=== PATIENT | female | born 1995 | race Caucasian/White ===

== ENCOUNTER 2019-03-12 20:00 | Inpatient (IN) | payer OTHER ==
[~2019-03-12] VITALS: Ht 165.1 cm; Wt 69.8 kg
[~2019-03-12 20:00] MED LIST: PREN-19 PO
[2019-03-12 20:11] VITALS: BP 107/68; PULSE 71; RESP 16
[2019-03-12] MEDS ORDERED: LACTATED RINGER'S 1,000 ML IV PRN (20:41)
[2019-03-12] MEDS ORDERED: LIDOCAINE 1% (MPF) 30 ML INJ INJ PRN (21:00)
[2019-03-12] MEDS ORDERED: MINERAL OIL LIGHT 10 ML VIAL TOP PRN (21:00)
[2019-03-12] MEDS ORDERED: CARBOPROST 250 MCG INJ IM PRN (21:00)
[2019-03-12] MEDS ORDERED: IBUPROFEN 600 MG TAB PO PRN (21:00)
[2019-03-12] MEDS ORDERED: METHYLERGONOVINE 0.2 MG INJ IM PRN (21:00)
[2019-03-12] MEDS ORDERED: BUTORPHANOL 2 MG INJ IV PRN ×2 (21:00)
[2019-03-12] MEDS ORDERED: OXYTOCIN 30 UNITS/LR 500 ML IV PRN (21:00)
[2019-03-12] MEDS ORDERED: OXYTOCIN 30 UNITS/LR 500 ML IV SCH ×2 (21:00)
[2019-03-12] MEDS ORDERED: MISOPROSTOL 200 MCG TAB PR PRN (21:00)
[2019-03-12] MEDS ORDERED: AMPICILLIN 2 GM/NS (PMX) 100 ML IV ONE (21:00)
--- NOTE | 2019-03-12 21:04 | TRIAGE ---
OB Triage Datetime Report Generated by CPN: 03/12/2019 21:04 Datetime: 03/12/2019 20:59 Time of Arrival: 03/12/2019 19:45 EGA: 39.1 Arrived By: Wheelchair Arrived From: Home Chief Complaint: c/o ucs and discharge Movement: Present Contractions: Regular Time Contractions Began: 03/12/2019 11:00 Contractions: q5 Rupture of Membranes: Denies Vaginal Bleeding: Scant Vaginal Discharge: Present Recent Sexual Intercouse: Denies Abdominal Trauma: Not Applicable Patient Complaints: Contractions Time Provider Notified: 03/12/2019 20:35 Provider Notified: Dr Hernandez Initial Plan: EFM,SVE Datetime: 03/12/2019 20:33 Stage of : OB Triage Labor Evaluation Frequency: 2-4 Monitor Mode: External Duration (sec)2399: 60 Quality: Moderate Pattern: Normal: <= 5 Contractions in 10 Minutes Resting Tone [place]: Relaxed Heart Rate FHR Baseline Rate: 135 Monitor Mode: External US FHR Baseline Changes: No Baseline Change Variability: Moderate 6-25 bpm Accelerations: 15X15 Decelerations: None Category: Category I Pain Assessment Pain Scale: 7 Pain Presence: Intermittent Pain Type: Contraction Pain Location: Abdomen Vaginal Exam Dilatation (cms): 5.0 Effacement (%): 80 Station: -2 Exam By: Leanna Phillips Membrane Status: Bulging Vaginal Bleeding: Scant Cervix, Consistency: Soft Cervix, Position: Midposition Presentation 'A': Cephalic
[2019-03-12] MEDS ORDERED: FENTAnyl 2MCG/ML-ROPIV 0.2% 100 ML ONE (21:45)
--- NOTE | 2019-03-12 21:55 | PREAC ---
Date/Time of Note Date/Time of Note DATE: 03/12/19 TIME: 21:54 Anesthesia Eval and Record Evaluation Time Pre-Procedure Interview DATE: 03/12/19 TIME: 21:54 Age 24 Sex female NPO: 8 hrs Preoperative diagnosis Labor Pain Planned procedure Labor Epidural Past Medical History Past Medical History: Includes Heme: Anemia : : (2), Para: (1), Gestational age: (39) Surgery & Anesthesia Issues No known issue Meds Anticoagulation: No Beta Josephine within 24 hr: No Reason Beta Josephine not given: Pt. not on B-Josephine Reported Medications Vit #76/Iron,Carb/FA (Prenatabs Rx Tablet) 1 Each Tablet, 1 EACH PO DAILY, TAB 03/12/19 Current Medications Lactated Ringer's 1,000 ml @ 125 mls/hr Q8H IV ; Start 03/12/19 at 20:41 Ampicillin 100 ml @ 100 mls/hr ONCE ONCE IV Last administered on 03/12/19at 21:20; Admin Dose 100 MLS/HR; Start 03/12/19 at 21:00; Stop 03/12/19 at 21:59 Ampicillin 50 ml @ 100 mls/hr Q4H IV ; Start 03/13/19 at 01:00 Butorphanol Tartrate (Stadol) 1 mg Q2H PRN IV .PAIN SCALE 1-5; Start 03/12/19 at 21:00 Butorphanol Tartrate (Stadol) 2 mg Q2H PRN IV .PAIN SCALE 6-10; Start 03/12/19 at 21:00 Lidocaine (Xylocaine 1% (Mpf)) 30 ml ONCE PRN INJ .EPISIOTOMY; Start 03/12/19 at 21:00 Oxytocin/Lactated Ringer's 500 ml @ 500 mls/hr ONCE POST IV ; Start 03/12/19 at 21:00 Oxytocin/Lactated Ringer's 500 ml @ 125 mls/hr POST IV ; Start 03/12/19 at 21:00 Ibuprofen (Motrin) 600 mg ONCE PRN PO .PAIN 1-5; Start 03/12/19 at 21:00 Lactated Ringer's 1,000 ml @ 2,000 mls/hr Q30M PRN IV .ANESTHESIA Last administered on 03/12/19at 21:19; Admin Dose 2,000 MLS/HR; Start 03/12/19 at 20:41 Oxytocin/Lactated Ringer's 500 ml @ 0 mls/hr ONCE PRN IV .VAGINAL BLEEDING; Start 03/12/19 at 21:00 Methylergonovine Maleate (Methergine) 0.2 mg ONCE PRN IM .VAGINAL BLEEDING; Start 03/12/19 at 21:00 Carboprost Tromethamine (Hemabate) 250 mcg ONCE PRN IM .VAGINAL BLEEDING; Start 03/12/19 at 21:00 Misoprostol (Cytotec) 1,000 mcg ONCE PRN DC .VAGINAL BLEEDING; Start 03/12/19 at 21:00 Mineral Oil (Muri-Lube) ONCE PRN TOP LABOR INDUCTION; Start 03/12/19 at 21:00; Stop 03/13/19 at 20:59 Meds reviewed: Yes Allergies Coded Allergies: No Known Allergy (Unverified , 03/12/19) Allergies Reviewed: Yes Labs/Studies Labs Reviewed: Reviewed by anesthesiologist Result Diagram: 03/12/192049 Laboratory Tests 03/12/19 20:50 test: Positive Studies: ECG (n/a), CXR (n/a) Pre-procedure Exam Last vitals Vital Signs Date Temp Pulse Resp B/P (MAP) Pulse Ox O2 O2 Flow FiO2 Time Delivery Rate 03/12/19 97.7 71 16 107/68 Room Air 20:11 (81) Airway: Adequate mouth opening, Adequate thyromental dist Mallampati: Mallampati II Teeth: Normal Lung: Normal Heart: Normal ASA Physical Status ASA physical status: 2 Emergency: None Planned Anesthetic Neuraxial: Epidural Planned Pain Management Epidural Pre-operative Attestations Prior to commencing anesthesia and surgery, the patient was re-evaluated, there was verification of: *The patient's identity *The results of appropriate recent lab work and preoperative vital signs *The above evaluation not changing prior to induction *Anesthetic plan, risk benefits, alternative and complications discussed with patient/family; questions answered; patient/family understands, accepts and wishes to proceed. HAMZAH EDWARDS MD Mar 12, 2019 21:55
[2019-03-12] MEDS ORDERED: NALOXONE (0.4 MG/ML) INJ IV PRN (22:00)
[2019-03-12] MEDS ORDERED: FENTAnyl 2MCG/ML-ROPIV 0.2% 100 ML BAG EPI SCH (22:00)
--- NOTE | 2019-03-12 22:05 | PAC ---
Date/Time of Note Date/Time of Note DATE: 03/12/19 TIME: 22:04 Post-Anesthesia Notes Post-Anesthesia Note Last documented vital signs Vital Signs Date Temp Pulse Resp B/P (MAP) Pulse Ox O2 O2 Flow FiO2 Time Delivery Rate 03/12/19 97.7 71 16 107/68 100 Room Air 22:01 (81) Activity: WNL Respiratory function: WNL Cardiovascular function: WNL Mental status: Baseline Pain reasonably controlled: Yes Hydration appropriate: Yes Nausea/Vomiting absent: Yes HAMZAH EDWARDS MD Mar 12, 2019 22:05
[2019-03-12] MEDS: LACTATED RINGER'S 1,000 ML IV SCH ×2 (22:16→23:45)
--- NOTE | 2019-03-12 23:55 | PREOPHP ---
DATE OF ADMISSION: 03/12/2019 HISTORY OF PRESENT ILLNESS: Ms. Lanie Shah is a 24-year-old 2, para 1, EDC of 03/18/2019 in trauterine at 39 weeks and 1 day gestational age, presented to triage in labor. She report s of contractions since early this morning. No vaginal bleeding or discharge. She has currently had a spontaneous rupture of membranes. She is 9 cm, 100% effaced at 0 station. PAST MEDICAL HISTORY: None. MEDICATIONS: vitamins. PAST SURGICAL HISTORY: None. OBSTETRICAL HISTORY: x1 vaginal delivery. GYNECOLOGIC HISTORY: 12, regular 3 to 4 days. Denies any sexually transmitted infections. Sexually active with 1 partner. SOCIAL HISTORY: Denies any smoking, drugs or alcohol. FAMILY HISTORY: None. REVIEW OF SYSTEMS: All within normal except history of present illness. PHYSICAL EXAMINATION: HEENT: Within normal. LUNGS: CTA bilateral. CARDIOVASCULAR: S1, S2. Regular rate, rhythm. ABDOMEN: Gravid, nontender. Negative CVA bilateral. EXTREMITIES: Negative edema. No calf tenderness. PELVIC: Vaginal exam is 9 cm, 100% effaced at 0 station. heart tracing category 1. Tocometer : Regular contractions. ASSESSMENT: Intrauterine at term in labor. PLAN: Anticipate vaginal delivery. Dictated By: DON NIEVES/MARIANO Conf#: [id number] DID#: [id number]
[2019-03-13] MEDS ORDERED: OXYTOCIN 30 UNITS/LR 500 ML IV SCH (00:22)
--- NOTE | 2019-03-13 00:22 | LDN ---
Date/Time of Note Date/Time of Note DATE: 03/13/19 TIME: 00:19 Delivery Summary Weeks of Gestation 39 Placenta Delivered: Spontaneously Meconium: none Laceration repair: 1st degree vaginal laceration repair with 2-0 and 3-0 chromic Anesthesia type: Epidural Estimated blood loss: 200 Sponge & Needle done & correct: Yes All needle counts correct: Yes Any foreign bodies felt in the: No Problems: (1) Club foot of both lower extremities Infant Delivery Information Sex Sex: male Apgars 1 Minute: 8 5 Minute: 9 Suctioning Nose & mouth suctioned at courtney: No Delee suction performed: No Umbilical Cord Umbilical cord with: 3 Vessels Cord presentations: nuchal cord Nuchal cord present X: 1 (reducible) Cord Blood was obtained: Yes DON XAVIER MD Mar 13, 2019 00:22
[2019-03-13] MEDS ORDERED: ACETAMINOPHEN 325 MG TAB PO PRN (00:30)
[2019-03-13] MEDS ORDERED: NACL 0.9% 3 ML SYG IV SCH (00:30)
[2019-03-13] MEDS ORDERED: WITCH HAZEL/GLYCERIN PAD PR PRN (00:30)
[2019-03-13] MEDS ORDERED: OXYCODONE/ASPIRIN (4.88/325) TAB PO PRN ×2 (00:30)
[2019-03-13] MEDS ORDERED: BENZOCAINE 20% 56 ML SPRAY TOP PRN (00:30)
[2019-03-13] MEDS ORDERED: OXYTOCIN 30 UNITS/LR 500 ML IV PRN (00:30)
[2019-03-13] MEDS ORDERED: ONDANSETRON 4 MG INJ IV PRN (00:30)
[2019-03-13] MEDS ORDERED: DIBUCAINE 1% 30 GM OINT TOP PRN (00:30)
[2019-03-13] MEDS ORDERED: CARBOPROST 250 MCG INJ IM PRN (00:30)
[2019-03-13] MEDS ORDERED: METHYLERGONOVINE 0.2 MG INJ IM PRN (00:30)
[2019-03-13] MEDS ORDERED: LANOLIN HPA 1 PKT TOP PRN (00:30)
[2019-03-13] MEDS ORDERED: MISOPROSTOL 200 MCG TAB PR PRN (00:30)
[2019-03-13] MEDS ORDERED: AMPICILLIN 1 GM/NS (PMX) 50 ML IV SCH (01:00)
[2019-03-13 02:00] VITALS: BP 123/67; PULSE 78; RESP 19
[2019-03-13 04:03] VITALS: BP 112/62; PULSE 54; RESP 18
[2019-03-13] MEDS: IBUPROFEN 600 MG TAB PO SCH ×3 (05:26→18:16)
[2019-03-13 08:00] VITALS: BP 107/69; PULSE 57; RESP 18
[2019-03-13] MEDS: SENNA/DOCUSATE NA (8.6MG/50MG) TAB PO SCH ×2 (09:29→21:32)
[2019-03-13 12:00] VITALS: BP 110/64; PULSE 59; RESP 20
[2019-03-13 16:00] VITALS: BP 88/53; PULSE 50; RESP 18
[2019-03-13 20:15] VITALS: BP 115/58; PULSE 67; RESP 17
[2019-03-14] MEDS: IBUPROFEN 600 MG TAB PO SCH ×3 (00:43→11:51)
[2019-03-14 04:00] VITALS: BP 115/63; PULSE 63; RESP 18
[2019-03-14 08:00] VITALS: BP 108/69; PULSE 58; RESP 18
[2019-03-14] MEDS: SENNA/DOCUSATE NA (8.6MG/50MG) TAB PO SCH (09:27)
--- NOTE | 2019-03-14 13:29 | PD.PPDC ---
KEYBOARD OPERATOR Discharge Instruction Condition [id number] Patient Condition: Ltgrq7i Fair Diet Kthnn3Fz Diet: Cjnpd7x Resume Regular Diet Activity/Restrictions Mvpqz4Ld Activity: Pefqg7w Normal Activity May Shower Zwwiy7Pc Restrictions: Xckna7z No Exercising No Lifting No Driving No Sexual Activity Nothing in the Vagina No [place] No Tampons, douche Follow-up Follow-up with Physician: 3, Week/Weeks Return to clinic for Ifqdz1Sz [facility]TER Instructions: Cijol7p Fever greater than 101 Chills Worsening abdominal pain Excessive Vaginal Bleeding More than 2 pads per hour Unable to tolerate diet Eqtpy3Cf OB Instructions: Hmhqt6c Breast Tenderness Depression Blurried Vision Headache Tlibn4Dc Surgical Instructions: Drbmh2j Incisional Drainage Incisional Redness DON XAVIER MD Mar 14, 2019 13:29
--- NOTE | 2019-03-14 13:30 | DS ---
Date/Time of Note Date/Time of Note DATE: 03/14/19 TIME: 13:30 Obstetrical Discharge Record Final Diagnosis Final Diagnosis: Term delivered Vaginal Delivery Obstetrical Delivery: Spontaneous, Laceration, Repaired Condition on Discharge Physical Assessment Last Vitals: stable afebrile Voiding: Yes Bowel Movement: Yes Breast: Soft, non-tender, Filling Fundus: Firm Abdomen and Incision: soft nt Calf Tenderness: No Patient Condition: Fair DON XAVIER MD Mar 14, 2019 13:30
--- NOTE | 2019-03-19 04:35 | DELSUM ---
Delivery Summary A-C Datetime Report Generated by CPN: 03/19/2019 04:35 DELIVERY PERSONNEL Radiologist Chief Of Breast Imaging: FLORIDALMA, JO MATERNAL INFORMATION Delivery Anesthesia: Epidural Medications in Delivery: LR W/30 UNITS PITOCIN Delivery QBL (ml): 200 Placenta Cultured: No Maternal Complications: None LABOR SUMMARY EDC: 03/18/2019 00:00 No. Babies in Womb: 1 Attempted: No Labor Anesthesia: Epidural LABOR INFORMATION Reason for Induction: Not Applicable Onset of Labor: 03/12/2019 11:00 Complete Dilatation: 03/12/2019 23:58 Oxytocin: N/A Group B Beta Strep: Done, Result Unknown Antibiotics # of Doses: 1 Antibiotics Time of Last Dose: 03/12/2019 21:20 Steroids Given: None Reason Steroids Not Administered: Not Applicable MEMBRANES Membranes Rupture Method: Spontaneous Rupture of Membranes: 03/12/2019 23:00 Length of Rupture (hr): 1.08 Amniotic Fluid Color: Clear Amniotic Fluid Amount: Moderate Amniotic Fluid Odor: None STAGES OF LABOR Stage 1 hr: 12 Stage 1 min: 58 Stage 2 hr: 0 Stage 2 min: 7 Stage 3 hr: 0 Stage 3 min: 2 Total Time in Labor hr: 13 Total Time in Labor min: 7 VAGINAL DELIVERY Episiotomy: None Laceration Extension: First Degree Laceration Type: Vaginal Laceration Repair: Yes Initial Vag Sponge Count: 10 Final Vag Sponge Count: 10 Initial Vag Sharps Count: 1 Final Vag Sharps Count: 3 Sponge Count Correct: Yes; Vaginal Sweep Performed Sharps Count Correct: Yes BABY A INFORMATION Infant Delivery Date/Time: 03/13/2019 00:05 Method of Delivery: Vaginal Born in Route : No : N/A Forceps: N/A Vacuum Extraction: N/A Shoulder Dystocia : N/A SHOULDER DYSTOCIA BABY A Infant Delivery Date/Time: 03/13/2019 00:05 PRESENTATION/POSITION BABY A Presentation: Cephalic Cephalic Presentation: Vertex Breech Presentation: N/A PLACENTA INFORMATION BABY A Placenta Delivery Time : 03/13/2019 00:07 Placenta Method of Delivery: Spontaneous Placenta Status: Delivered SCORES BABY A Heart Rate 1 min: >100 bpm Resp Effort 1 min: Good Cry Reflex Irritability 1 min: Cough/Sneeze/Pulls Away Muscle Tone 1 min: Active Motion Color 1 min: Body [place], Extremit Blue Resuscitation Effort 1 min: Tactile Stimulation SCORE 1 MIN: 9 Heart Rate 5 min: >100 bpm Resp Effort 5 min: Good Cry Reflex Irritability 5 min: Cough/Sneeze/Pulls Away Muscle Tone 5 min: Active Motion Color 5 min: Body [place], Extremit Blue Resuscitation Effort 5 min: Tactile Stimulation SCORE 5 MIN: 9 INFORMATION BABY A Gestational Age at Delivery: 39.2 Gestational Status: Full Term- 39- 40.6 Weeks Outcome : Liveborn, with signs of life Condition : Stable Sex: Male IDENTIFICATION/MEDS BABY A ID Band Number: [id number] ID Band Location: Right Leg; Left Arm Sensor Applied: Yes Sensor Number: [id number] Sensor Location : Cord Clamp Vitamin K Given : Not Given Erythromycin Given: Not Given WEIGHT/LENGTH BABY A Infant Birthweight (gm): 3380 Weight (lb): 7 Weight (oz): 7 Infant Length (in): 19.75 Length (cm): 50.17 CORD INFORMATION BABY A Nuchal Cord : Around Neck x1, Loose Cord Blood Taken: Yes Infant Suction: Mouth; Nose ASSESSMENT BABY A Infant Complications: Multiple Variable Decels Physical Findings at Delivery: Other Physical Findings- Other: BILATERAL CLUBBED FEET Respirations: Appears Normal Deputy Jailer/ALS Called : Yes Infant Care By: RT/RN Transferred To: Remains with Mother
--- NOTE | 2019-03-19 04:36 | DELSUM ---
Delivery Summary A-C Datetime Report Generated by CPN: 03/19/2019 04:36 DELIVERY PERSONNEL Choreography Director: FLORIDALMA, JO MATERNAL INFORMATION Delivery Anesthesia: Epidural Medications in Delivery: LR W/30 UNITS PITOCIN Delivery QBL (ml): 200 Placenta Cultured: No Maternal Complications: None LABOR SUMMARY EDC: 03/18/2019 00:00 No. Babies in Womb: 1 Attempted: No Labor Anesthesia: Epidural LABOR INFORMATION Reason for Induction: Not Applicable Onset of Labor: 03/12/2019 11:00 Complete Dilatation: 03/12/2019 23:58 Oxytocin: N/A Group B Beta Strep: Done, Result Unknown Antibiotics # of Doses: 1 Antibiotics Time of Last Dose: 03/12/2019 21:20 Steroids Given: None Reason Steroids Not Administered: Not Applicable MEMBRANES Membranes Rupture Method: Spontaneous Rupture of Membranes: 03/12/2019 23:00 Length of Rupture (hr): 1.08 Amniotic Fluid Color: Clear Amniotic Fluid Amount: Moderate Amniotic Fluid Odor: None STAGES OF LABOR Stage 1 hr: 12 Stage 1 min: 58 Stage 2 hr: 0 Stage 2 min: 7 Stage 3 hr: 0 Stage 3 min: 2 Total Time in Labor hr: 13 Total Time in Labor min: 7 VAGINAL DELIVERY Episiotomy: None Laceration Extension: First Degree Laceration Type: Vaginal Laceration Repair: Yes Initial Vag Sponge Count: 10 Final Vag Sponge Count: 10 Initial Vag Sharps Count: 1 Final Vag Sharps Count: 3 Sponge Count Correct: Yes; Vaginal Sweep Performed Sharps Count Correct: Yes BABY A INFORMATION Infant Delivery Date/Time: 03/13/2019 00:05 Method of Delivery: Vaginal Born in Route : No : N/A Forceps: N/A Vacuum Extraction: N/A Shoulder Dystocia : N/A SHOULDER DYSTOCIA BABY A Infant Delivery Date/Time: 03/13/2019 00:05 PRESENTATION/POSITION BABY A Presentation: Cephalic Cephalic Presentation: Vertex Breech Presentation: N/A PLACENTA INFORMATION BABY A Placenta Delivery Time : 03/13/2019 00:07 Placenta Method of Delivery: Spontaneous Placenta Status: Delivered SCORES BABY A Heart Rate 1 min: >100 bpm Resp Effort 1 min: Good Cry Reflex Irritability 1 min: Cough/Sneeze/Pulls Away Muscle Tone 1 min: Active Motion Color 1 min: Body [place], Extremit Blue Resuscitation Effort 1 min: Tactile Stimulation SCORE 1 MIN: 9 Heart Rate 5 min: >100 bpm Resp Effort 5 min: Good Cry Reflex Irritability 5 min: Cough/Sneeze/Pulls Away Muscle Tone 5 min: Active Motion Color 5 min: Body [place], Extremit Blue Resuscitation Effort 5 min: Tactile Stimulation SCORE 5 MIN: 9 INFORMATION BABY A Gestational Age at Delivery: 39.2 Gestational Status: Full Term- 39- 40.6 Weeks Outcome : Liveborn, with signs of life Condition : Stable Sex: Male IDENTIFICATION/MEDS BABY A ID Band Number: [id number] ID Band Location: Right Leg; Left Arm Sensor Applied: Yes Sensor Number: [id number] Sensor Location : Cord Clamp Vitamin K Given : Not Given Erythromycin Given: Not Given WEIGHT/LENGTH BABY A Infant Birthweight (gm): 3380 Weight (lb): 7 Weight (oz): 7 Infant Length (in): 19.75 Length (cm): 50.17 CORD INFORMATION BABY A Nuchal Cord : Around Neck x1, Loose Cord Blood Taken: Yes Infant Suction: Mouth; Nose ASSESSMENT BABY A Infant Complications: Multiple Variable Decels Physical Findings at Delivery: Other Physical Findings- Other: BILATERAL CLUBBED FEET Respirations: Appears Normal Paranormal Investigator/ALS Called : Yes Infant Care By: RT/RN Transferred To: Remains with Mother
[2019-03-20] MEDS ORDERED: PROPOFOL 40 ML ONE (12:36)
[2019-03-20] MEDS ORDERED: LIDOCAINE 100 MG SYRINGE ONE (12:36)
[2019-03-20] MEDS ORDERED: FENTAnyl 50 MCG/ML VIAL ONE (12:37)
== END 2019-03-14 16:59 | disposition home or self-care (01) | DRG 806 ==
LOC: EDBD 20:00 → OBT 20:00 → L-D 20:02 → MERGE 20:35 → L-D 20:35 → OBT 20:35 → PP1 03-13 01:33
PROVIDERS: ADMIT Obstetrics & Gynecology; ATTEND Obstetrics & Gynecology
PROC: 10E0XZZ Delivery of Products of Conception, External Approach (ICD-10-PCS; principal; 2019-03-13)
PROC: 0HQ9XZZ Repair Perineum Skin, External Approach (ICD-10-PCS; 2019-03-13)
PROC: 3E033VJ Introduction of Other Hormone into Peripheral Vein, Percutaneous Approach (ICD-10-PCS; 2019-03-13)
DX: O69.81X0 Labor and delivery complicated by cord around neck, without compression, not applicable or unspecified (principal); O71.4 Obstetric high vaginal laceration alone; Z37.0 Single live birth; Z3A.39 39 weeks gestation of pregnancy
CPT/HCPCS: 62322; 76815; 80307; 81001; 85025; 85610; 85730; 86592; 86850; 86900; 86901; 87340; 99464; G0463; J0290; J2590; J3010; J7120